=== PATIENT | female | born 1985 | race American Indian/Alaskan Native ===

== ENCOUNTER 2017-11-04 01:39 | Inpatient (IN) | payer OTHER ==
[2017-11-04] MEDS ORDERED: ASPIRIN PO ONE (01:55)
[2017-11-04] MEDS ORDERED: CATAPRES PO ONE (02:01)
--- NOTE | 2017-11-04 02:29 | XRay Report ---
FINAL REPORT EXAM: XR CHEST 1V AP HISTORY: cp TECHNIQUE: A portable upright view the chest was submitted. FINDINGS: The heart is mildly enlarged. The lungs are clear. There is no evidence of congestion or effusion. The skeletal structures do not show any acute changes. IMPRESSION: Mild cardiomegaly. No acute process in the chest.
[2017-11-04 02:37] LABS: Basophils # (Auto) 0.1 K/mm3 (0.0-0.1); Basophils % (Auto) 0.9 % (0.0-1.8); Eosinophils # (Auto) 0.2 K/mm3 (0.0-0.4); Eosinophils % (Auto) 1.5 % (0.0-4.3); Hematocrit 33.7 % (30.3-42.9); Hemoglobin 11.3 gm/dl (10.1-14.3); Lymphocytes # (Auto) 4.3 K/mm3 (1.2-5.4); Lymphocytes % (Auto) 41.3 % (13.4-35.0); Mean Corpuscular HGB Conc 33 % (30-34); Mean Corpuscular Hemoglobin 30 pg (28-32); Mean Corpuscular Volume 88 fl (79-97); Monocytes # (Auto) 0.7 K/mm3 (0.0-0.8); Platelet Count 297 K/mm3 (140-440); Red Blood Count 3.84 M/mm3 (3.65-5.03); Red Cell Distribution Width 13.6 % (13.2-15.2)
[2017-11-04 02:41] LABS: BUN/Creatinine Ratio 16; Blood Urea Nitrogen 11 mg/dL (7-17); Calcium 8.6 mg/dL (8.4-10.2); Hemolysis Index 69
[2017-11-04] MEDS ORDERED: ZOFRAN IV ONE ×2 (02:50)
[2017-11-04] MEDS ORDERED: MORPHINE IV ONE ×2 (02:50)
[2017-11-04 03:02] LABS: INR 0.9 (0.87-1.13)
--- NOTE | 2017-11-04 03:33 | Emergency Department Report ---
ED Chest Pain HPI - General Chief Complaint: Chest Pain Stated Complaint: CHEST PAIN,HEADACHE,DIZZY Time Seen by Provider: 11/04/17 02:01 Source: patient Mode of arrival: Ambulatory Limitations: No Limitations - History of Present Illness Initial Comments: 31-year-old female with a past medical history of untreated hypertension, obesity, and pituitary tumor presents to the hospital complaining of chest pain , headache, and elevated blood pressure. Patient initially stated that did not have a history of hypertension but admits that 2 weeks ago her blood pressure was 219/140 when she checked it at work because of dizziness. Upon further questioning it appears that patient has had elevated blood pressure readings with systolic in the 200s on intermittent blood pressure checks for at least the past 2 years. Patient has refused to accept that she has high blood pressure and therefore has never been placed on any medication. Today she developed a global headache described as someone hitting her with a hammer. Around 2 PM she developed constant mid chest pressure described as a heaviness. Positive associated shortness of breath. No nausea, vomiting, diaphoresis, calf tenderness, recent travel, history of PE/DVT, or control use. Positive family history of CAD. Patient does not smoke cigarettes. No previous cardiac workup in the past. Severity scale (0 -10): 6 - Related Data Allergies Allergy/AdvReac Type Severity Reaction Status Date / Time No Known Allergies Allergy Verified 11/04/17 01:55 Heart Score - HEART Score History: Moderately suspicious EKG: Normal Age: < 45 Risk factors: 1-2 risk factors Troponin: < normal limit HEART Score: 2 ED Review of Systems ROS: Stated complaint: CHEST PAIN,HEADACHE,DIZZY Other details as noted in HPI Comment: All other systems reviewed and negative ED Past Medical Hx - Past Medical History Previous Medical History?: Yes Hx Hypertension: Yes Additional medical history: pituitary tumor - Surgical History Past Surgical History?: No - Social History Smoking Status: Never Smoker Substance Use Type: None, Alcohol ED Physical Exam - General Limitations: No Limitations - Other Other exam information: General: No limitations, patient is alert in no acute distress Head exam: Atraumatic, normocephalic Eyes exam: Normal appearance ENT: Moist mucous membrane, normal oropharynx Neck exam: Normal inspection, full range of motion, no meningismus nontender Respiratory exam: Clear to auscultation bilateral, no wheezes, rales, crackles Cardiovascular: Normal rate and rhythm, normal heart sounds, chest wall nontender Abdomen: Soft, nondistended, and nontender, with normal bowel sounds, no rebound, or guarding Extremity: Full range of motion normal inspection no deformity, no calf tenderness or edema Back: Normal Inspection, full range of motion, no tenderness Neurologic: Alert, oriented x3, cranial nerves intact, no motor or sensory deficit Psychiatric: normal affect, normal mood Skin: Warm, dry, intact ED Course Vital Signs 11/04/17 11/04/17 11/04/17 01:51 02:10 02:16 Temperature 98.7 F Pulse Rate 80 77 78 Respiratory 18 23 16 Rate Blood Pressure 238/109 191/91 181/99 Blood Pressure [Right] O2 Sat by Pulse 98 98 95 Oximetry 11/04/17 11/04/17 11/04/17 02:20 02:42 02:55 Temperature Pulse Rate 78 78 Respiratory 16 16 Rate Blood Pressure 191/91 Blood Pressure 164/104 [Right] O2 Sat by Pulse 96 98 Oximetry 11/04/17 11/04/17 11/04/17 03:02 03:30 03:32 Temperature Pulse Rate 66 Respiratory 16 16 16 Rate Blood Pressure 167/93 Blood Pressure [Right] O2 Sat by Pulse 95 Oximetry 11/04/17 11/04/17 04:00 04:30 Temperature Pulse Rate 59 L 62 Respiratory 20 15 Rate Blood Pressure 159/119 166/88 Blood Pressure [Right] O2 Sat by Pulse 97 94 Oximetry ANISA score - Anisa Score Age > 65: (0) No Aspirin use within the Past 7 Days: (0) No 3 or more CAD Risk Factors: (1) Yes 2 or more Angina events in past 24 hrs: (1) Yes Known CAD with more than 50% Stenosis: (0) No Elevated Cardiac Markers: (0) No ST Deviation Greater than 0.5mm: (0) No ANISA Score: 2 ED Medical Decision Making - Lab Data Result diagrams: 11/04/17 01:56 11/04/17 01:56 Lab Results 11/04/17 11/04/17 11/04/17 Range/Units 01:56 01:56 02:04 WBC 10.3 (4.5-11.0) K/mm3 RBC 3.84 (3.65-5.03) M/mm3 Hgb 11.3 (10.1-14.3) gm/dl Hct 33.7 (30.3-42.9) % MCV 88 (79-97) fl MCH 30 (28-32) pg MCHC 33 (30-34) % RDW 13.6 (13.2-15.2) % Plt Count 297 (140-440) K/mm3 Lymph % (Auto) 41.3 H (13.4-35.0) % Morrison % (Auto) 7.0 (0.0-7.3) % Eos % (Auto) 1.5 (0.0-4.3) % Baso % (Auto) 0.9 (0.0-1.8) % Lymph # 4.3 (1.2-5.4) K/mm3 Morrison # 0.7 (0.0-0.8) K/mm3 Eos # 0.2 (0.0-0.4) K/mm3 Baso # 0.1 (0.0-0.1) K/mm3 Seg Neutrophils % 49.3 (40.0-70.0) % Seg Neutrophils # 5.1 (1.8-7.7) K/mm3 PT (12.2-14.9) Sec. INR (0.87-1.13) Sodium 139 (137-145) mmol/L Potassium 4.1 (3.6-5.0) mmol/L Chloride 102.0 (98-107) mmol/L Carbon Dioxide 22 (22-30) mmol/L Anion Gap 19 mmol/L BUN 11 (7-17) mg/dL Creatinine 0.7 (0.7-1.2) mg/dL Estimated GFR > 60 ml/min BUN/Creatinine Ratio 16 % Glucose 123 H (65-100) mg/dL Calcium 8.6 (8.4-10.2) mg/dL Troponin T < 0.010 (0.00-0.029) ng/mL HCG, Qual Negative (Negative) 11/04/17 Range/Units 02:22 WBC (4.5-11.0) K/mm3 RBC (3.65-5.03) M/mm3 Hgb (10.1-14.3) gm/dl Hct (30.3-42.9) % MCV (79-97) fl MCH (28-32) pg MCHC (30-34) % RDW (13.2-15.2) % Plt Count (140-440) K/mm3 Lymph % (Auto) (13.4-35.0) % Morrison % (Auto) (0.0-7.3) % Eos % (Auto) (0.0-4.3) % Baso % (Auto) (0.0-1.8) % Lymph # (1.2-5.4) K/mm3 Morrison # (0.0-0.8) K/mm3 Eos # (0.0-0.4) K/mm3 Baso # (0.0-0.1) K/mm3 Seg Neutrophils % (40.0-70.0) % Seg Neutrophils # (1.8-7.7) K/mm3 PT 12.6 (12.2-14.9) Sec. INR 0.90 (0.87-1.13) Sodium (137-145) mmol/L Potassium (3.6-5.0) mmol/L Chloride (98-107) mmol/L Carbon Dioxide (22-30) mmol/L Anion Gap mmol/L BUN (7-17) mg/dL Creatinine (0.7-1.2) mg/dL Estimated GFR ml/min BUN/Creatinine Ratio % Glucose (65-100) mg/dL Calcium (8.4-10.2) mg/dL Troponin T (0.00-0.029) ng/mL HCG, Qual (Negative) - EKG Data -: EKG Interpreted by Co EKG shows normal: sinus rhythm, axis (qrs 35 ), QRS complexes (qrsd 100), ST-T waves (no stemi/t inv) Rate: normal (80) - EKG Data When compared to previous EKG there are: previous EKG unavailable 11/04/17 05:04 repeat ekg shows no acute changes - Radiology Data Radiology results: report reviewed read by radiologist cxr: mild cmg, naf ct head: naf - Medical Decision Making Patient will be admitted to the hospital for stress testing and further blood pressure management. No signs of a few elevation or troponin elevation and ED. bp improved after clonidine 0.2mg Pt received asa, morphine, and zofran with improvement in pain - Differential Diagnosis mi, unstable angia, pe, atypical cp, htn emrg, ich , brain mass Critical Care Time: No Critical care attestation.: If time is entered above; I have spent that time in minutes in the direct care of this critically ill patient, excluding procedure time. ED Disposition Clinical Impression: Chest pain, Uncontrolled hypertension, Noncompliance, Obesity, Headache Disposition: OP ADMIT IP TO THIS HOSP Is pt being admited?: Yes Condition: Stable Time of Disposition: 05:06 (Dr Sandoval/hosp)
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
[2017-11-04] MEDS ORDERED: SODIUM CHLORIDE FLUSH SYRINGE 10 ML IV PRN (05:57)
[2017-11-04] MEDS ORDERED: TYLENOL PO PRN (05:57)
[2017-11-04] MEDS ORDERED: MORPHINE IV PRN (05:57)
[2017-11-04] MEDS ORDERED: ZOFRAN IV PRN (05:57)
[2017-11-04] MEDS ORDERED: APRESOLINE IV PRN (05:59)
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
--- NOTE | 2017-11-04 09:58 | Event Note ---
Date: 11/04/17 Patient is 31 yo presented with chest pain. Found to have hypertensive emergency with BP>200s. I have seen and examined her today.Her BP is now improved. Give Norvasc 5mg po daily, stabilize BP. For stress test today.
[2017-11-04] MEDS ORDERED: NORVASC PO SCH (10:00)
[2017-11-04] MEDS ORDERED: APRESOLINE PO SCH (10:00)
[2017-11-04] MEDS ORDERED: SODIUM CHLORIDE FLUSH SYRINGE 10 ML IV SCH (10:00)
[2017-11-04] MEDS ORDERED: BABY ASPIRIN PO SCH (10:00)
[2017-11-04] MEDS ORDERED: LOVENOX SUB-Q SCH ×2 (10:00)
[2017-11-04] MEDS ORDERED: LEXISCAN IV ONE ×2 (10:03→11:10)
--- NOTE | 2017-11-04 16:11 | Discharge Summary ---
Providers - Providers Date of Admission: 11/04/17 05:58 Date of discharge: 11/04/17 Attending physician: HARJIT VIEIRA Primary care physician: HARJIT HENAO Hospitalization Condition: Fair Disposition: DC-01 TO HOME OR SELFCARE Core Measure Documentation - Palliative Care Palliative Care/ Comfort Measures: Not Applicable - Core Measures Any of the following diagnoses?: none Exam - Constitutional Vitals: Temp Pulse Resp BP Pulse Ox 97.6 F 64 20 153/77 95 11/04/17 12:30 11/04/17 15:34 11/04/17 12:30 11/04/17 15:34 11/04/17 12:30 Plan Activity: no restrictions Diet: low fat, low cholesterol, low salt Additional Instructions: 1.Follow up with PCP or [place] [facility] in 1 week Prescriptions: amLODIPine [Norvasc] 10 mg PO DAILY #30 tab
[2017-11-04 17:24] VITALS: BP 170/93
== END 2017-11-04 17:50 | disposition home or self-care (01) | DRG 305 ==
LOC: ED 01:39 → 4A 05:58
PROVIDERS: ADMIT Internal Medicine; ATTEND Internal Medicine
DX: I16.1 Hypertensive emergency (principal); Z68.43 Body mass index [BMI] 50.0-59.9, adult; I10 Essential (primary) hypertension; E66.9 Obesity, unspecified; R51 Headache; Z91.14 Patient's other noncompliance with medication regimen; Z82.49 Family history of ischemic heart disease and other diseases of the circulatory system
CPT/HCPCS: 36415; 70450; 71045; 78452; 80048; 84484; 84703; 85025; 85379; 85610; 93005; 93010; 93017; 96374; 96375; A9502; J1650; J2270; J2405; J2785

== ENCOUNTER 2019-01-26 05:29 | Emergency (ER) | payer OTHER ==
[2019-01-26] MEDS ORDERED: ZOFRAN IV ONE (06:58)
[2019-01-26] MEDS ORDERED: MORPHINE IV ONE (06:58)
[2019-01-26] MEDS ORDERED: APRESOLINE IV ONE (06:58)
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
[2019-01-26 07:17] LABS: Basophils # (Auto) 0.1 K/mm3 (0.0-0.1); Basophils % (Auto) 0.8 % (0.0-1.8); Eosinophils # (Auto) 0.1 K/mm3 (0.0-0.4); Eosinophils % (Auto) 0.8 % (0.0-4.3); Hematocrit 35.8 % (30.3-42.9); Hemoglobin 11.9 gm/dl (10.1-14.3); Lymphocytes # (Auto) 2.8 K/mm3 (1.2-5.4); Lymphocytes % (Auto) 30.5 % (13.4-35.0); Mean Corpuscular HGB Conc 33 % (30-34); Mean Corpuscular Volume 89 fl (79-97); Monocytes # (Auto) 0.7 K/mm3 (0.0-0.8); Monocytes % (Auto) 7.2 % (0.0-7.3); Platelet Count 286 K/mm3 (140-440); Red Blood Count 4.03 M/mm3 (3.65-5.03); Red Cell Distribution Width 13.7 % (13.2-15.2)
[2019-01-26 07:38] LABS: Alanine Aminotransferase 20 units/L (7-56); Albumin 3.7 g/dL (3.9-5); BUN/Creatinine Ratio 15; Blood Urea Nitrogen 9 mg/dL (7-17); Hemolysis Index 5
--- NOTE | 2019-01-26 08:09 | Cat Scan Report ---
CT HEAD WITHOUT CONTRAST INDICATION / CLINICAL INFORMATION: Hypertension. Headache for one day TECHNIQUE: Axial imaging performed from the skull apex through the skull base without the use of cont rast. All CT scans at this location are performed using CT dose reduction for ALARA by means of auto mated exposure control. COMPARISON: 11/04/2017 FINDINGS: CEREBRAL PARENCHYMA: No significant abnormality. No acute territorial infarct. HEMORRHAGE: None. EXTRA-AXIAL SPACES: Normal in size and morphology for the patient's age. VENTRICULAR SYSTEM: Normal in size and morphology for the patient's age. MIDLINE SHIFT OR HERNIATION: None. CEREBELLUM / BRAINSTEM: No significant abnormality. CALVARIUM: No significant abnormality. ORBITS: Normal as visualized. PARANASAL SINUSES / MASTOID AIR CELLS: Normal as visualized. SOFT TISSUES of HEAD: No significant abnormality. ADDITIONAL FINDINGS: None. IMPRESSION: No acute intracranial abnormality. Signer Name: Tha Bustos Jr, MD Signed: 01/26/2019 8:04 AM Workstation Name: [id number]
[2019-01-26 11:30] VITALS: BP 148/88
== END 2019-01-26 09:30 | disposition home or self-care (01) ==
LOC: ED 05:29
DX: I16.0 Hypertensive urgency (principal); I10 Essential (primary) hypertension; R51 Headache; Z91.14 Patient's other noncompliance with medication regimen; Z86.018 Personal history of other benign neoplasm; Z79.899 Other long term (current) drug therapy
CPT/HCPCS: 36415; 70450; 80053; 85025; 96374; 96375; 99284; J0360; J2270; J2405

== ENCOUNTER 2020-12-05 22:43 | Emergency (ER) | payer OTHER ==
[2020-12-06 03:12] VITALS: BP 170/68
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
== END 2020-12-06 04:05 | disposition home or self-care (01) ==
LOC: ED 22:43
DX: S16.1XXA Strain of muscle, fascia and tendon at neck level, initial encounter (principal); S29.012A Strain of muscle and tendon of back wall of thorax, initial encounter; I10 Essential (primary) hypertension; Z86.69 Personal history of other diseases of the nervous system and sense organs; Z79.899 Other long term (current) drug therapy; V89.2XXA Person injured in unspecified motor-vehicle accident, traffic, initial encounter; Y93.89 Activity, other specified; Y92.488 Other paved roadways as the place of occurrence of the external cause; Y99.8 Other external cause status
CPT/HCPCS: 99282

== ENCOUNTER 2022-01-05 09:11 | Emergency (ER) | payer SELFPAY ==
[2022-01-05 11:03] LABS: Basophils # (Auto) 0.1 K/mm3 (0.0-0.1); Basophils % (Auto) 0.6 % (0.0-1.8); Eosinophils # (Auto) 0.1 K/mm3 (0.0-0.4); Eosinophils % (Auto) 1.5 % (0.0-4.3); Hematocrit 36.5 % (30.3-42.9); Hemoglobin 11.8 gm/dl (10.1-14.3); Lymphocytes # (Auto) 4.5 K/mm3 (1.2-5.4); Lymphocytes % (Auto) 46.3 % (13.4-35.0); Mean Corpuscular HGB Conc 32 % (30-34); Mean Corpuscular Volume 91 fl (79-97); Monocytes # (Auto) 0.8 K/mm3 (0.0-0.8); Monocytes % (Auto) 8.1 % (0.0-7.3); Platelet Count 345 K/mm3 (140-440); Red Cell Distribution Width 14.2 % (13.2-15.2)
[2022-01-05 11:58] LABS: Alanine Aminotransferase 21 units/L (7-56); Albumin 4.2 g/dL (3.9-5); BUN/Creatinine Ratio 12; Blood Urea Nitrogen 11 mg/dL (7-17); Calcium 9.8 mg/dL (8.4-10.2); Hemolysis Index 4
[2022-01-05 12:32] LABS: Bilirubin,Urine NEG (Negative); Blood,Urine NEG (Negative); Color,Urine Yellow (Yellow); Mucus,Urine FEW /HPF; Protein,Urine <15 mg/dL mg/dL (Negative); Urobilinogen,Urine < 2.0 mg/dL (<2.0)
[2022-01-05 12:39] LABS: HCG Qualitative,Urine Negative (Negative)
--- NOTE | 2022-01-05 13:46 | XRay Report ---
CHEST 2 VIEWS INDICATION / CLINICAL INFORMATION: Chest Pain. COMPARISON: 11/04/2017 FINDINGS: SUPPORT DEVICES: None. HEART / MEDIASTINUM: No significant abnormality. LUNGS / PLEURA: No significant pulmonary or pleural abnormality. No pneumothorax. ADDITIONAL FINDINGS: No significant additional findings. IMPRESSION: 1. No acute findings. Signer Name: Fab August MD Signed: 01/05/2022 1:41 PM Workstation Name: [id number]
[2022-01-05] MEDS ORDERED: cloNIDine 0.1 MG TAB PO ONE (15:12)
[2022-01-05] MEDS ORDERED: LISINOPRIL 10 MG TAB PO ONE (15:12)
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
[2022-01-05 17:00] VITALS: BP 145/70
--- NOTE | 2022-01-07 15:10 | Electrocardiograph Report ---
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
== END 2022-01-05 18:01 | disposition home or self-care (01) ==
LOC: ED 09:11
DX: R07.9 Chest pain, unspecified (principal); I10 Essential (primary) hypertension; R51.9 Headache, unspecified; E66.9 Obesity, unspecified; R56.9 Unspecified convulsions
CPT/HCPCS: 36415; 71046; 80053; 81001; 81025; 84484; 85025; 93005; 99283; 99284